=== PATIENT | male | born 1990 | race Two or more races ===

== ENCOUNTER 2022-10-18 11:51 | Emergency (ER) | payer OTHER ==
[~2022-10-18] VITALS: Ht 182.9 cm; Wt 81.6 kg
== END 2022-10-18 15:55 | disposition home or self-care (01) ==
LOC: ER 11:51
PROVIDERS: General Practice
DX: K29.90 Gastroduodenitis, unspecified, without bleeding (principal); R10.9 Unspecified abdominal pain; R11.10 Vomiting, unspecified